=== PATIENT | female | born 2000 | race Native Hawaiian/Other Pacific Islander ===

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

== ENCOUNTER 2022-01-01 11:08 | Outpatient (CLI) | payer BC | END 2022-01-01 19:14 | disposition home or self-care (01) | LOC: RAD 11:08 | PROVIDERS: ATTEND Family Medicine | DX: R07.89 Other chest pain (principal); R10.9 Unspecified abdominal pain; N39.0 Urinary tract infection, site not specified ==

== ENCOUNTER 2022-02-07 09:08 | Outpatient (CLI) | payer BC | END 2022-02-07 18:51 | disposition home or self-care (01) | LOC: US 09:08 | PROVIDERS: ATTEND Nurse Practitioner Family | DX: R10.11 Right upper quadrant pain (principal) ==

== ENCOUNTER 2022-07-19 08:34 | Outpatient (CLI) | payer BC | END 2022-07-19 19:27 | disposition home or self-care (01) | LOC: US 08:34 | PROVIDERS: ATTEND Nurse Practitioner Family | DX: R19.7 Diarrhea, unspecified (principal) ==

== ENCOUNTER 2022-07-20 08:36 | Outpatient (CLI) | payer BC | END 2022-07-20 21:47 | disposition home or self-care (01) | LOC: NM 08:36 | PROVIDERS: ATTEND Nurse Practitioner Family | DX: R19.7 Diarrhea, unspecified (principal) | CPT/HCPCS: A9537 ==

== ENCOUNTER 2022-09-06 07:43 | Outpatient (CLI) | payer BC | END 2022-09-06 19:09 | disposition home or self-care (01) | LOC: NM 07:43 | PROVIDERS: ATTEND Nurse Practitioner Family | DX: R94.6 Abnormal results of thyroid function studies (principal) | CPT/HCPCS: A9516 ==